=== PATIENT | male | born 2000 | race African-American/Black ===

== ENCOUNTER 2023-12-28 14:06 | Emergency (ER) | payer MEDICAID ==
[~2023-12-28] VITALS: Ht 170.2 cm; Wt 72.5 kg
[2023-12-28 14:12] VITALS: O2SAT 97
[2023-12-28 15:40] LABS: BASOPHILS % 0.4 % (0.0-2.0); EOSINOPHILS % 1.7 % (0.0-5.0); HEMOGLOBIN. 15.5 g/dL (14.0-18.0); LYMPHOCYTES % 22.6 % (20.0-50.0); MEAN CORPUSCULAR HEMOGLOBIN 30.7 pg (28.0-32.0); MEAN CORPUSCULAR HGB CONC 32.9 g/dL (31.0-37.0); MEAN CORPUSCULAR VOLUME 93.5 fL (80.0-94.0); MONOCYTES % 4.9 % (2.0-8.0); NEUTROPHILS % 70.4 % (40.0-76.0); PLATELET 183 x1000/uL (130-400); RED BLOOD CELL COUNT 5.03 mill/uL (4.7-6.1); RED CELL DISTRIBUTION WIDTH 12.5 % (11.6-14.6); WHITE BLOOD COUNT 6.2 x1000/uL (4.5-11.0)
[2023-12-28] MEDS: KETOROLAC 30MG/ML VIAL IM NR (15:44)
[2023-12-28 15:45] VITALS: BP 142/92; PULSE 99; RESP 18; TEMP 37.05852; O2SAT 99
[2023-12-28 15:46] LABS: CARBON DIOXIDE 29 mEq/L (21-32); CHLORIDE 105 mEq/L (98-107); POTASSIUM 4.7 mEq/L (3.5-5.1); SODIUM 139 mEq/L (136-145)
[2023-12-28 15:47] LABS: CALCIUM 10.1 mg/dL (8.7-10.4)
[2023-12-28 15:52] LABS: GLUCOSE 109 mg/dL (70-105); UREA NITROGEN BLOOD 7 mg/dL (9-23)
[2023-12-28 15:57] LABS: TROPONIN I HIGH SENSITIVITY < 4 ng/L (3.0-53)
== END 2023-12-28 15:47 | disposition home or self-care (01) ==
LOC: ER 14:06
DX: R07.89 Other chest pain (principal)
CPT/HCPCS: 99285; 71045; 80048; 85025; 84484; 36415; 93005; 96372; J1885